=== PATIENT | female | born 1945 | race Hispanic/Latino ===

== ENCOUNTER 2023-09-30 09:30 | Emergency (ER) | payer OTHER ==
[~2023-09-30] VITALS: Ht 162.6 cm; Wt 72.6 kg
[2023-09-30] MEDS ORDERED: FAMC500T8 PO (09:51)
[2023-09-30] MEDS ORDERED: ACYC30OI2 TP (09:51)
[2023-09-30 10:43] VITALS: BP 132/79; PULSE 88; RESP 16; O2SAT 97
[2023-10-01] MEDS ORDERED: GABA300C PO (04:48)
[2023-10-01] MEDS ORDERED: ACET-2079 PO (04:48)
[2023-10-01] MEDS ORDERED: VALA10002 PO (04:48)
== END 2023-09-30 10:45 | disposition home or self-care (01) ==
LOC: EDH 09:30
DX: B02.9 Zoster without complications (principal); E78.00 Pure hypercholesterolemia, unspecified; Z90.49 Acquired absence of other specified parts of digestive tract
CPT/HCPCS: 99282

== ENCOUNTER 2023-10-01 03:35 | Emergency (ER) | payer OTHER ==
[~2023-10-01] VITALS: Ht 162.6 cm; Wt 72.6 kg
[~2023-10-01 03:35] MED LIST: ACYC30OI2 TP; FAMC500T8 PO
[2023-10-01] MEDS ORDERED: ACET-2079 PO (04:48)
[2023-10-01] MEDS ORDERED: VALA10002 PO (04:48)
[2023-10-01] MEDS ORDERED: GABA300C PO (04:48)
[2023-10-01] MEDS ORDERED: MORPHINE 2 MG SYG IVP ONE (05:00)
[2023-10-01 06:40] VITALS: BP 142/82; PULSE 79; RESP 18; O2SAT 98
== END 2023-10-01 06:41 | disposition home or self-care (01) ==
LOC: EDH 03:35
DX: B02.9 Zoster without complications (principal); E78.00 Pure hypercholesterolemia, unspecified; Z79.624 Long term (current) use of inhibitors of nucleotide synthesis; Z90.49 Acquired absence of other specified parts of digestive tract
CPT/HCPCS: 99283; 96374; J2270